=== PATIENT | male | born 1970 | race American Indian/Alaskan Native ===

== ENCOUNTER 2016-07-20 11:22 | Emergency (ER) | payer MEDICAID ==
[2016-07-20 12:08] VITALS: BMI 39.0
--- NOTE | 2016-07-20 12:12 | C.PDOC ---
History Of Present Illness The patient, a 45 y/o male whose PMHx includes Asthma, Diabetes, and Hypertension, presents to the ED via EMS for evaluation of weakness to his bilateral lower extremities which began approximately 1 week ago. Patient states he got out of bed this morning and made his way to the bathroom with the assistance of his walker. During the time, patient notes he felt weakness and numbness to his lower extremities and reports he has been dragging his feet while using the walker for the past week. After using the bathroom, patient states he was unable to get up from the toilet, and was having difficulties gripping using his hands. Patient states he was recently evaluated at [facility] and has been using a walker for around 1 week. Patient states he was evaluated by his PMD on 07/09 for an issue related to back pain. He denies contacting his PMD about the numbness to his extremities. Currently in the ED, patient no longer has difficulty with gripping using his hands. He denies headache, chest pain, back pain, abdominal pain, urinary/bowel incontinence. PMD: Dr. Josh Haider Time Seen by Provider: 07/20/16 11:44 Chief Complaint (Nursing): Weakness/Neurological Deficit History Per: Patient History/Exam Limitations: no limitations Onset/Duration Of Symptoms: Other (around 1 week ) Current Symptoms Are (Timing): Still Present Associated Symptoms Preceding Syncopal Episode: No Predromal Symptoms (Sudden Onset) Seizure Or Post-ictal Symptoms: denies: Incontinent Of Urine, Incontinent Of Stool Fall Associated With With Symptoms: No Additional History Per: Patient - Symptoms Of CVA Associated Symptoms: Decreased Ability To Walk Character Of Deficits: Left: Weakness, Right: Weakness, Leg: Weakness Past Medical History Reviewed: Historical Data, Nursing Documentation, Vital Signs Vital Signs: Last Vital Signs Temp 97.9 F 07/20/16 11:50 Pulse 102 H 07/20/16 15:43 Resp 20 07/20/16 15:43 BP 120/78 07/20/16 15:43 Pulse Ox 98 07/20/16 17:58 - Medical History PMH: Asthma, HTN, Hypercholesterolemia Surgical History: No Surg Hx Family History: States: Unknown Family Hx - Social History Hx Alcohol Use: No Hx Substance Use: No - Immunization History Hx Tetanus Toxoid Vaccination: No Hx Influenza Vaccination: No Hx Pneumococcal Vaccination: No Review Of Systems Cardiovascular: Negative for: Chest Pain Gastrointestinal: Negative for: Abdominal Pain Genitourinary: Negative for: Incontinence Musculoskeletal: Negative for: Back Pain Neurological: Positive for: Weakness (b/l LE), Numbness (b/l LE). Negative for : Headache Physical Exam - Physical Exam Appears: Non-toxic, No Acute Distress Skin: Normal Color, Warm, Dry Head: Atraumatic, Normacephalic Eye(s): bilateral: Normal Inspection, EOMI Oral Mucosa: Moist Neck: Supple Chest: Symmetrical, No Deformity, No Tenderness Cardiovascular: Rhythm Regular, No Murmur Respiratory: Normal Breath Sounds, No Rales, No Rhonchi, No Wheezing Back: Normal Inspection, No Vertebral Tenderness, No Paraspinal Tenderness Extremity: Capillary Refill (less than 2 seconds) Pulses: Left Dorsalis Pedis: Normal, Right Dorsalis Pedis: Normal Neurological/Psych: Oriented x3, Normal Speech, Normal Motor (b/l upper extremities ), Normal Sensation (5/5 strength to b/l upper extremities ), Other (+upgoing Babinski reflex. +decreased sensation to left lower extremity, radiating towards left thigh. normal sensation to b/l thighs. ) Gait: Unable To Assess ED Course And Treatment - Laboratory Results Result Diagrams: 07/20/16 12:37 07/20/16 12:37 ECG: Interpreted By Me, Viewed By Md ECG Rhythm: Sinus Rhythm Interpretation Of ECG: Normal Sinus Rhythm at 88bpm. No ST elevations or depressions. Rate From EC O2 Sat by Pulse Oximetry: 98 (on RA) Pulse Ox Interpretation: Normal Medical Decision Making Medical Decision Making: Impression: 45 y/o male with subjective numbness and weakness to b/l lower extremities Differential Diagnoses include but are not limited to: spinal compression vs parasagittal stroke vs Guillain-Valadez Syndrome vs spinal abscess vs MS vs lead poisoning Plan: * labs * CT Head * CXR * MRI Spinal Canal Lumbar * MRI Spinal Canal Thoracic * EKG * reassess and disposition Progress Notes: Patient unable to tolerate MRI, spoke with neuro will get CT with contrast. Patient see by Dr. Howard in the ED. Disposition Discussed With : Josh Haider Doctor Will See Patient In The: Hospital Counseled Patient/Family Regarding: Studies Performed - Disposition Disposition: HOSPITALIZED Disposition Time: 15:27 Condition: GUARDED - Clinical Impression Clinical Impression: Muscle weakness, Neuropathy - Scribe Statement The provider has reviewed the documentation as recorded by the Scribe (Bryanna Eldridge) Provider Attestation: All medical record entries made by the Scribe were at my direction and personally dictated by me. I have reviewed the chart and agree that the record accurately reflects my personal performance of the history, physical exam, medical decision making, and the department course for this patient. I have also personally directed, reviewed, and agree with the discharge instructions and disposition. Decision To Admit - Pt Status Changed To: Hospital Disposition Of: Inpatient - Admit Certification Admit to Inpatient:: After my assessment, the patient will require hospitalization for at least two midnights. This is because of the severity of symptoms shown, intensity of services needed, and/or the medical risk in this patient being treated as an outpatient. - InPatient: Physician Admission Certification: I certify that this patient requires 2 or more midnights of care for the following reason:: patient with neuroipathy and possible spinal compression - . Bed Request Type: Regular Patient Diagnosis: Muscle weakness, Neuropathy Addendum Addendum: 07/20/16 17:39 Spoke with [facility] and Radiology. Patient with cervical spine compression from C2 -C6. OPLL Dr. Santamaria consulted. Discussed with him. Pending his recommendations. Dr. Haider made aware. 07/20/16 17:[address] Haro, recommended transfer. Sheela called, pending call back. 07/20/16 18:[address] Jo from [facility]. He accepted the transfer to the ED. Amada called.
[2016-07-20 12:53] LABS: BASO # 0.1 K/uL (0.0-0.2); EOS # 0.2 K/uL (0.0-0.7); EOS % 2.2 % (0.0-4.0); HEMATOCRIT 44.2 % (35.0-51.0); LYMPH # 1.7 K/uL (1.0-4.3); LYMPH % 23.5 % (20.0-40.0); MEAN CELL VOLUME 73.8 fL (80.0-94.0); MEAN CORPUSCULAR HEMOGLOBIN 23.6 pg (27.0-31.0); MONO # 0.5 K/uL (0.0-0.8); MONO % 7.6 % (0.0-10.0); RED CELL DISTRIBUTION WIDTH 14.7 % (11.5-14.5); WHITE BLOOD COUNT 7.1 K/uL (4.8-10.8)
[2016-07-20 13:02] LABS: CHLORIDE 99 mmol/L (98-107); POTASSIUM 4.2 mmol/L (3.6-5.2); SODIUM 136 mmol/L (132-148)
[2016-07-20 13:04] LABS: ALB/GLOB RATIO 1.1 (1.0-2.1); CARBON DIOXIDE 24 mmol/L (22-30); CHOLESTEROL 191 mg/dL (0-199); GFR AFRICAN-AMERICAN > 60; TOTAL PROTEIN 7.4 g/dL (6.3-8.3)
[2016-07-20 13:05] LABS: ALKALINE PHOSPHATASE 76 U/L (38-126); ALT/SGPT 35 U/L (21-72); AST/SGOT 19 U/L (17-59); BLOOD UREA NITROGEN 27 mg/dL (9-20); GLUCOSE,RANDOM 203 mg/dL (75-110)
--- NOTE | 2016-07-20 13:29 | CT ---
PROCEDURE: CT HEAD WITHOUT CONTRAST. HISTORY: weakness COMPARISON: None available. TECHNIQUE: Axial computed tomography images were obtained through the head/brain without intravenous contrast. Radiation dose: Total exam DLP = 1985.09 mGy-cm. FINDINGS: HEMORRHAGE: No acute parenchymal, subarachnoid or extra-axial hemorrhage. BRAIN: Mild generalized volume loss with more localized biparietal cortical atrophic changes. No evidence of large acute infarcts seen. VENTRICLES: No evidence of hydrocephalus. CALVARIUM: No acute calvarial fractures. . PARANASAL SINUSES: Aerosolized mucosal thickening 1 or 2 posterior superior ethmoid air cells. The the the MASTOID AIR CELLS: Unremarkable as visualized. No inflammatory changes.Note made of cerumen within both external auditory canals OTHER FINDINGS: Orbits and contents unremarkable Incidental note made of a small elliptical shaped calcification within the left upper spinal canal at the level of the C1-C2 articulation, the exact location of which is uncertain though this could be along the dural surface or possibly within the thecal sac. Followup MRI of the cervical spine could be performed for further evaluation. IMPRESSION: No acute intracranial hemorrhage. Mild generalized volume loss with more localized biparietal cortical atrophic changes. Incidental note made of a small elliptical shaped calcification within the left upper spinal canal at the level of the C1-C2 articulation, the exact location of which is uncertain though this could be along the dural surface or possibly within the thecal sac. Followup MRI of the cervical spine could be performed for further evaluation.
--- NOTE | 2016-07-20 14:52 | RAD ---
HISTORY: admission COMPARISON: No prior. FINDINGS: LUNGS: No active pulmonary disease. PLEURA: No significant pleural effusion identified, no pneumothorax apparent. CARDIOVASCULAR: Normal. OSSEOUS STRUCTURES: No significant abnormalities. VISUALIZED UPPER ABDOMEN: Normal. OTHER FINDINGS: None. IMPRESSION: No active disease.
[2016-07-20] MEDS ORDERED: Sodium Chloride 0.9% 1,000 ML IV ONE (15:17)
[2016-07-20] MEDS ORDERED: Sodium Chloride 0.9% 1,000 ML ONE (15:29)
[2016-07-20] MEDS ORDERED: DiphenhydrAMINE 50 mg/ml Inj IVP STA ×2 (15:58→15:59)
[2016-07-20] MEDS ORDERED: Dexamethasone 4 mg/1 ml IVP STA (15:58)
[2016-07-20 15:59] VITALS: O2SAT 98
[2016-07-20] MEDS ORDERED: Iodixanol 320 MG/ML 100 ML BOTTLE IV ONE (16:03)
[2016-07-20] MEDS ORDERED: DiphenhydrAMINE 50 mg/ml Inj ONE (16:04)
[2016-07-20] MEDS ORDERED: Dexamethasone 4 mg/1 ml ONE (16:04)
--- NOTE | 2016-07-20 17:29 | CT ---
CT scan lumbar spine dated 07/20/2016. History: Bilateral leg weakness and numbness. Contiguous helical/transaxial sections of the lumbar spine performed following intravenous injection of approximately 100 cc of Visipaque 320 contrast material. . Additional 2 dimensional sagittal and coronal reformats provided. Note that the study is limited due to large body habitus. The central canal is not well delineated. Radiation dose. Total DLP = 1684.90 mGy-cm. Findings: The current study reveals no acute compression fractures no retropulsed fragments. The vertebral bodies exhibit normal stature. Slight straightening of the normal lumbar lordosis however vertebral bodies and facets are otherwise normally aligned. No evidence to suggest discitis osteomyelitis. No evidence of extra-axial mass or collection. Paraspinal soft tissues appear grossly unremarkable. Mild multilevel degenerative spondylosis. The L5-S1 level, there is mild posterior disc space narrowing. Small chronic appearing Schmorl's nodes of. Small broad-based disc bulge reaches the ventral surfaces of the descending S1 nerve roots. The overall central canal appears adequate at this level. Facets are slightly hypertrophic. The proximal exit foramina are marginal to slightly narrowed. At the L4-L5 level, there is minor posterior disc space narrowing. Small to medium-sized broad-based disc bulge results in some flattening of the ventral surface of the thecal sac. The overall central canal appears adequate. Facets are slightly hypertrophic. Proximal exit foramina are marginal to slightly narrowed. Minimal broad-based disc bulging noted at the L3 L4, L2-L3 and to a lesser degree L1-L2 levels. Facets a prominent. Overall central canal appears adequate. The proximal exit foramina are marginal to slightly. Impression: Limited study as above. No acute compression fractures no retropulsed fragments. No evidence to suggest discitis osteomyelitis. No evidence of extra-axial mass or collection seen. Minor multilevel degenerative spondylosis as described.
[2016-07-20] MEDS ORDERED: Acetaminophen-Codeine 300/30 mg Tab PO PRN (17:42)
--- NOTE | 2016-07-20 17:43 | CT ---
CT scan of the thoracic spine dated 07/20/2016. History: Weakness. Contiguous helical/transaxial sections of the thoracic spine performed following intravenous injection of approximately 100 cc of Visipaque 320 contrast material. Additional 2 dimensional sagittal and coronal reformats provided. Is limited study is limited due to large body habitus with diminution of fine detail particularly within the thoracic spinal canal. . . Radiation dose. Total DLP = 1397.61 mGy-cm. Findings: The current study reveals inferior margin of significant ossification of the posterior longitudinal ligament extending to the C6-C7 disc space level which results in severe canal stenosis and cord compression. Please refer to CT scan of the cervical spine for additional details. There are no acute compression fractures no retropulsed fragments involving the visualized thoracic spine. The thoracic vertebral bodies exhibit normal stature and alignment. Facets normally aligned. Mild multilevel degenerative spondylosis on is present. Changes include varying degrees of disc space narrowing small posterior osteophyte formation most pronounced at the T10-T11 level where osteophytes encroach into the anterolateral borders of the spinal canal more so on the left side. There may also be some mild localize cord compression at this level however the due to the large body habitus and poor visualization of the canal evaluation. The facet joints also mildly hypertrophic. The exit foramina appear adequate so far as can be seen. Disc spaces otherwise appear intact without evidence of destructive changes seen to suggest discitis osteomyelitis. Paraspinal soft tissues unremarkable. There are no enhancing lesions seen within the spinal canal. No evidence to suggest epidural mass or collection. Impression: No evidence of acute compression fractures no retropulsed fragments. No evidence to suggest discitis osteomyelitis. Mild multilevel degenerative spondylosis. 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 Please refer to CT scan of the cervical spine. Note that these findings were discussed with referring clinician's Dr. Howard and Dr. Parnell.
--- NOTE | 2016-07-20 17:54 | CT ---
PROCEDURE: CT Cervical Spine without contrast HISTORY: <b/l leg weakness and numbness> COMPARISON: None available. TECHNIQUE: Axial computed tomography images were obtained of the cervical spine following intravenous injection of approximately 100 cc of of Visipaque 320 contrast material. . Coronal and sagittal reformatted images were created and reviewed. Radiation dose: Total exam DLP = 699.962 mGy-cm. FINDINGS: VERTEBRAE: The current study reveals no evidence of acute compression fractures nor retropulsed fragments. The vertebral bodies exhibit relatively normal stature. There is mild kyphotic angulation deformity centered at the C5-C6 level with straightening of the normal cervical lordosis above and below this level. Exuberant ossification/calcification of the posterior longitudinal ligament (OPLL) extends from near the level of the tip of the odontoid inferiorly to the nearly the C6-C7 disc space level. Changes result in very severe central canal stenosis and cord compression most severely affecting the C3-C4 through the upper portion of C3 through the C6-C7 level though most severe at the C5 level where the canal and presumably the cord exhibits ribbon like configuration. . DISCS/SPINAL CANAL/NEURAL FORAMINA: Mild multilevel degenerative spondylosis. Changes include varying degrees of mild disc space narrowing most notably along the anterior disc margin at C5-C6 level. No evidence of destructive endplate changes seen to suggest discitis osteomyelitis. There are no definitive enhancing extra-axial masses collections or obvious cord lesions so far as can be seen. PARASPINAL SOFT TISSUES: Unremarkable. OTHER FINDINGS: None. IMPRESSION: Exuberant ossification posterior longitudinal ligament from C2 through the C6-C7 levels with severe canal stenosis and cord compression. Recommend neurosurgical consultation. Note that these findings were discussed with referring clinician's Dr. Howard and Dr. Parnell See above discussion for additional findings and details.
[2016-07-20] MEDS ORDERED: Fluticasone-Salmeterol 250-50mcg Diskus INH SCH (18:00)
[2016-07-20 19:44] VITALS: BP 126/77; PULSE 103; RESP 18; TEMP 98.1
[2016-07-20] MEDS ORDERED: Albuterol-Ipratrop 3 mg / 0.5 (3 ml) UD INH SCH (20:00)
--- NOTE | 2016-07-20 20:34 | CON ---
DATE: 07/20/2016 ATTENDING PHYSICIAN: Dr. Josh Haider. REASON FOR CONSULTATION: Lower extremity weakness. HISTORY OF PRESENT ILLNESS: The patient is a 45-year-old gentleman with a past medical history of as thma, diabetes, hypertension, morbidly overweight, mentally challenged as per sister. The patient wa s admitted because of lower extremity weakness, which started approximately a week ago and the patien t went to the Emergency Room at [facility] a week ago and the patient was in the [facility] Room for 1 day and then discharged. The patient stated that initially it started a few weeks a go with numbness, tingling and weakness of the upper extremities and then for a week and now he has b een complaining from lower extremity weakness associated with occasional incontinence, but the patien t stated that he cannot make it to the bathroom and not really incontinence. The patient is aware th at his cannot go to the bathroom because of the weakness. The patient was seen by his primary physic gabriel about 10 days ago because of the back pain, but he then called his primary physician for his weak ness and numbness and tingling of the leg . 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 The patient denies any tr st pain or bowel incontinence. The patient stated that he fell down in June on his back. He did not seek medical attention at that time. PAST MEDICAL HISTORY: As mentioned above. The patient stated that his diabetes is not well controll ed. SOCIAL HISTORY: Nonsmoker or ethanol abuser. PHYSICAL EXAMINATION: VITAL SIGNS: Blood pressure 129/83, pulse 87, respiration 18, temperature 97.9. MENTAL STATUS: The patient is alert, awake, oriented to person, place and time. Slow mental process ing, decreased attention span, short-term memory. CRANIAL NERVES: Pupils are 3 mm bilaterally reactive. Positive bilateral nystagmus, horizontal gaze and nystagmus on extreme gaze. No double vision, no blurred vision, no field defect. No facial wea kness. No facial weakness. Neck supple. MOTOR: Normal tone in upper and lower extremities. No pronation drift. 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 Lower extremities: Right side is weaker than the left side, hardly a ble to lift his right leg against gravity, 2 inches only, and unable to lift the left; it is overall on the left 2-3/5, on the right 3-/5 and ankles are 4+/5. Deep tendon reflexes 1 in upper extremitie s, 2 at the knees and ankles. Plantars are extensor bilaterally. No clonus. SENSORY: Decreased pinprick and light touch below L1 on both sides and significantly decreased below the knees bilaterally. intact. CAT scan of the brain did not reveal significant findings, but unfortunately there is a significant a rtifact at the base of the skull infratentorially. Labs are reviewed. IMPRESSION: The patient is a 45-year-old gentleman with a past medical history of diabetes, hyperten gisella, status post fall in June admitted because of weakness of the lower extremities for a week a nd got worse this morning while trying to get off the bathroom seat and also had difficulty gripping his hands with weakness of the lower extremities at the same time. The patient stated that he had no strength to grab in the morning. The findings are consistent with upper motor neuron, the possibili ty of a lesion intra or extramedullary, one cannot be excluded. Consider the hyperreflexia and plant ars extensors despite the patient is diabetic. Unfortunately I have waiting 3 hours for the MRI of t he thoracic spine, but unfortunately it was not done because the patient was uncooperative. The milly ent is overweight, close to 300 pounds. A CAT scan of the cervical, thoracic and lumbar spine will b e done to rule out extramedullary lesion and compression fracture secondary to the fall. The above was discussed at length with Dr. Parnell the Emergency Room physician and with the radiologis t also Dr. Solomon regarding the findings. To me it is concerning for epidural abscess and that it is an emergency to be done as soon possible. Thank you for the consultation and will followup with you. Liam Howard MD cc: [id number] TT: 07/20/2016 20:33:46 Confirmation # [id number] Dictation # [id number] dn
[2016-07-20] MEDS ORDERED: (Novolog) Insulin Aspart, Recombinant 100 u/ml 10 ml vial SC SCH (22:00)
--- NOTE | 2016-07-21 22:12 | CARD ---
APPROVED REPORT EKG Measurement Heart [id number] IA [id number] <Conclusion> Normal sinus rhythm Moderate voltage criteria for LVH, may be normal variant Borderline ECG
== END 2016-07-20 19:49 | disposition short-term general hospital (02) ==
LOC: C.ER 11:22 → C.9E 15:28 → UNDOADMIN 15:28 → C.ER 19:49
DX: M62.81 Muscle weakness (generalized) (principal); G62.9 Polyneuropathy, unspecified; G95.29 Other cord compression

== ENCOUNTER 2018-02-04 11:00 | Emergency (ER) | payer MEDICAID ==
[2018-02-04 11:10] VITALS: BMI 37.7
[2018-02-04 11:11] VITALS: BP 117/79; PULSE 102; RESP 20; TEMP 98.2; O2SAT 97
[2018-02-04] MEDS ORDERED: Lidocaine Hydrochloride 5 ML INJ ONE (13:03)
--- NOTE | 2018-02-04 13:16 | C.PDOC ---
History Of Present Illness 47 y/o male with history of DM, HTN and asthma presents to ED for evaluation of abscess to right inner gluteal cheek for 2 days. Patient states he gets abscess intermittently and drained before, last was on 10/12/17. [place] [facility] [place] baseline and denies headache, fever, chills, nausea, vomiting, diarrhea or any other complaints at this time. Time Seen by Provider: 02/04/18 11:52 Chief Complaint (Nursing): Abnormal Skin Integrity History Per: Patient History/Exam Limitations: no limitations Onset/Duration Of Symptoms: Days Current Symptoms Are (Timing): Still Present Past Medical History Reviewed: Historical Data, Nursing Documentation, Vital Signs Vital Signs: Last Vital Signs Temp 98.2 F 02/04/18 11:11 Pulse 102 H 02/04/18 11:11 Resp 20 02/04/18 11:11 BP 117/79 02/04/18 11:11 Pulse Ox 97 02/04/18 11:11 - Medical History PMH: Asthma, HTN, Hypercholesterolemia Surgical History: No Surg Hx Family History: States: No Known Family Hx - Social History Hx Alcohol Use: No Hx Substance Use: No - Immunization History Hx Tetanus Toxoid Vaccination: No Hx Influenza Vaccination: No Hx Pneumococcal Vaccination: No Review Of Systems Constitutional: Negative for: Fever, Chills Cardiovascular: Negative for: Chest Pain Respiratory: Positive for: Shortness of Breath. Negative for: Cough Gastrointestinal: Negative for: Nausea, Vomiting, Diarrhea Skin: Positive for: Other (abscess). Negative for: Rash Neurological: Negative for: Headache Physical Exam - Physical Exam Appears: Non-toxic, No Acute Distress, Other (Mobidly obese) Skin: Warm, Dry, Other (2x4cm area of induration to right inner gluteal) Head: Atraumatic, Normacephalic Eye(s): bilateral: Normal Inspection Oral Mucosa: Moist Cardiovascular: Rhythm Regular Respiratory: Normal Breath Sounds, No Rales, No Rhonchi, No Wheezing, Other (actively sob, states baseline) Gastrointestinal/Abdominal: Soft, No Tenderness, No Guarding, No Rebound, Other (obese abdomen) Neurological/Psych: Oriented x3, Normal Speech, Normal Cognition ED Course And Treatment O2 Sat by Pulse Oximetry: 97 (RA) Pulse Ox Interpretation: Normal - Incision & Drainage Of Abscess Anesthesia: Lidocaine 1% Prep Used: Sterile Water, Betadine Procedure: Incised W/Scalpel Blade#: (11), Drained Pus (5mL), Packed W/Gauze, Cultures Obtained And Sent To Lab Disposition Counseled Patient/Family Regarding: Diagnosis, Need For Followup - Disposition Referrals: [facility] [Outside] Disposition: HOME/ ROUTINE Disposition Time: 13:15 Condition: STABLE Instructions: Abscess Incision and Drainage Forms: [facility] ([place] General Discharge Instructions - POA Present On Arrival: None - Clinical Impression Clinical Impression: Abscess - Scribe Statement The provider has reviewed the documentation as recorded by the Scribe Kel Higuera All medical record entries made by the Lawrenceibfunmilayo were at my direction and personally dictated by me. I have reviewed the chart and agree that the record accurately reflects my personal performance of the history, physical exam, medical decision making, and the department course for this patient. I have also personally directed, reviewed, and agree with the discharge instructions and disposition.
== END 2018-02-04 13:43 | disposition home or self-care (01) ==
LOC: C.ER 11:00
DX: L02.31 Cutaneous abscess of buttock (principal)

== ENCOUNTER 2018-02-06 10:49 | Emergency (ER) | payer MEDICAID ==
[2018-02-06 10:52] VITALS: BMI 37.7
[2018-02-06 11:23] VITALS: O2SAT 98
--- NOTE | 2018-02-06 11:55 | C.PDOC ---
History Of Present Illness 47 year old male presents to the ED for packing removal status-post I&D procedure two days ago. No complaints offered at this time. Patient reports the area seems to have improved. He denies any fever or chills. Time Seen by Provider: 02/06/18 11:39 Chief Complaint (Nursing): Wound Check History Per: Patient History/Exam Limitations: no limitations Onset/Duration Of Symptoms: Days Ago (2) Current Symptoms Are (Timing): Better Past Medical History Reviewed: Historical Data, Nursing Documentation, Vital Signs Vital Signs: Last Vital Signs Temp 98.4 F 02/06/18 11:22 Pulse 100 H 02/06/18 11:22 Resp 20 02/06/18 11:22 BP 155/103 H 02/06/18 11:22 Pulse Ox 98 02/06/18 11:22 - Medical History PMH: Asthma, Diabetes, HTN, Hypercholesterolemia Surgical History: No Surg Hx Family History: States: Unknown Family Hx - Social History Hx Alcohol Use: No Hx Substance Use: No - Immunization History Hx Tetanus Toxoid Vaccination: No Hx Influenza Vaccination: Yes (2018) Hx Pneumococcal Vaccination: No Review Of Systems Except As Marked, All Systems Reviewed And Found Negative. Constitutional: Negative for: Fever, Chills Skin: Positive for: Other (healing abscess to gluteal region). Negative for: Rash Neurological: Negative for: Weakness, Numbness, Incoordination Physical Exam - Physical Exam Appears: Well, Non-toxic, No Acute Distress Skin: Warm, Dry, No Rash, Other (Right gluteal abscess with packing in place, no erythema, (+) minimal tenderness) Head: Atraumatic, Normacephalic Eye(s): bilateral: Normal Inspection Chest: Symmetrical Respiratory: No Accessory Muscle Use, Other (no respiratory distress) Neurological/Psych: Oriented x3, Normal Speech Gait: Steady ED Course And Treatment O2 Sat by Pulse Oximetry: 98 (RA) Pulse Ox Interpretation: Normal Medical Decision Making Medical Decision Making: Impression: Visit for wound check, packing removal Plan: Packing removed without difficulty. Wound irrigated with NS. Patient remained afebrile alert and oriented with stable vital signs during ER evaluation. Educated patient regarding follow-up instructions. Disposition Counseled Patient/Family Regarding: Diagnosis, Need For Followup - Disposition Disposition: HOME/ ROUTINE Disposition Time: 11:50 Condition: STABLE Prescriptions: Cephalexin [cephalexin] 500 mg PO Q12 #10 cap Instructions: Wound Care (DC) Forms: [facility] ([place]istani) - POA Present On Arrival: None - Clinical Impression Clinical Impression: Abscess packing removal - PA / INDUCTOR TESTER / Resident Statement MD/DO has reviewed & agrees with the documentation as recorded. - Scribe Statement The provider has reviewed the documentation as recorded by the Scribe (Jenna Villarreal) All medical record entries made by the Scribe were at my direction and personally dictated by me. I have reviewed the chart and agree that the record accurately reflects my personal performance of the history, physical exam, medical decision making, and the department course for this patient. I have also personally directed, reviewed, and agree with the discharge instructions and disposition.
[2018-02-06 11:57] VITALS: BP 143/91; PULSE 91; RESP 18; TEMP 97.8
== END 2018-02-06 12:06 | disposition home or self-care (01) ==
LOC: C.ER 10:49
DX: Z48.01 Encounter for change or removal of surgical wound dressing (principal)